=== PATIENT | male | born 1990 | race Two or more races ===

== ENCOUNTER 2018-01-28 11:04 | Emergency (ER) | payer OTHER ==
[~2018-01-28] VITALS: Ht 182.9 cm; Wt 90.7 kg
--- NOTE | 2018-01-28 11:35 | NUR ---
[id number]: OK TO BOOK. 2 TASER DARTS IN BACK. OD ON "KEYBOARD CHILI PEPPER GRINDER" . PATIENT NOT COOPERATIVE WITH CARE. PATIENT NOT IN DISTRESS. VSS
--- NOTE | 2018-01-28 11:48 | NUR ---
Patient discharged under custody in stable condition. Written and verbal after care instructions given. Patient verbalizes understanding of instruction.
[2018-01-28 11:49] VITALS: BP 130/80
== END 2018-01-28 11:56 ==
LOC: ER 11:06
DX: Z02.89 Encounter for other administrative examinations (principal); S30.850A Superficial foreign body of lower back and pelvis, initial encounter; F18.10 Inhalant abuse, uncomplicated; Z60.2 Problems related to living alone; W45.8XXA Other foreign body or object entering through skin, initial encounter; Y93.89 Activity, other specified; Y92.89 Other specified places as the place of occurrence of the external cause; Y99.8 Other external cause status
CPT/HCPCS: 71045-TC; A4606; Z7610